=== PATIENT | male | born 1950 | race Caucasian/White ===

== ENCOUNTER → 2021-09-21 | Day surgery (SDC) | payer MEDICARE ==
[~2021-09-21] VITALS: Ht 185.4 cm; Wt 83.0 kg
[~2021-09-21] MED LIST: ALL DAY ALLERGY10 MG PO; ATENOLOL-CHLOR1 EACH PO; FISH OIL 1,2001 EACH PO; GABAPENTIN800 MG PO; KEFLEX250 MG PO; METAMUCIL1 DOSE PO; NORCO 5/3251 EACH PO; OXYCODONE HCL15 MG PO; PERCOCET 10/321 EACH PO; PERCOCET 5-3251 EACH PO; PRILOSEC20 MG PO; PROSCAR5 MG PO; SINGULAIR10 MG PO; TIZANIDINE HCL4 M1 PO; VENTOLIN HFA IN18 GM PO; VITAMIN D350 MC3 PO; VITAMIN E450 MG PO; VOLTAREN **OUT75 MG PO; XARELTO10 MG PO; ZETIA10 MG PO; ZOCOR40 MG PO
== END | disposition home or self-care (01) ==
LOC: FAS 08-18 11:00
DX: K59.00 Constipation, unspecified (principal); D12.2 Benign neoplasm of ascending colon; K64.0 First degree hemorrhoids; K64.4 Residual hemorrhoidal skin tags; M19.90 Unspecified osteoarthritis, unspecified site; N40.0 Benign prostatic hyperplasia without lower urinary tract symptoms; J44.9 Chronic obstructive pulmonary disease, unspecified; I10 Essential (primary) hypertension; E78.00 Pure hypercholesterolemia, unspecified; K21.9 Gastro-esophageal reflux disease without esophagitis; F17.200 Nicotine dependence, unspecified, uncomplicated; Z88.5 Allergy status to narcotic agent; Z90.49 Acquired absence of other specified parts of digestive tract
CPT/HCPCS: J1885; J2704; J7120